=== PATIENT | female | born 1955 | race Caucasian/White ===

== ENCOUNTER 2018-07-05 08:14 | Outpatient (CLI) | payer OTHER | END 2018-07-05 08:18 | disposition home or self-care (01) | LOC: TOM 08:14 → MRI 08:15 → TOM 08:18 → MRI 08:30 | DX: K56.600 Partial intestinal obstruction, unspecified as to cause (principal); Z12.11 Encounter for screening for malignant neoplasm of colon; Q41.9 Congenital absence, atresia and stenosis of small intestine, part unspecified; K63.5 Polyp of colon ==